=== PATIENT | female | born 1940 | race Caucasian/White ===

== ENCOUNTER → 2022-03-22 | Outpatient (CLI) | payer MEDICARE ==
[~2022-03-22] MED LIST: ACIDOPHILUS1 EAC4; ASPIRIN81 M1; ATENOLOL25 MG PO; AZO; CALCIUM 500 +1 EAC2; CENTRUM SILVER1 EACH; DIATRIZOATE MEGL/DIATRIZOA SOD 30 ML BTL PO ONE; EVISTA60 MG; FIBER CHOICE C1.5 GM; FLAX, FISH & B1 EACH; IOPAMIDOL 370 MG/ML 100 ML INFUS..BTL INJ ONE; L-LYSINE500 M2; LEVOTHYROXINE50 MCG; LOVASTATIN40 MG; MELOXICAM7.5 MG; OMEPRAZOLE40 MG; OSTEO BI-FLEX1 EACH
[2022-03-22 08:30] LABS: CREATININE, SERUM 0.92 mg/dL (0.57-1.11)
== END ==
LOC: CT 07:20
PROVIDERS: ATTEND Surgery
DX: K44.9 Diaphragmatic hernia without obstruction or gangrene (principal); K76.0 Fatty (change of) liver, not elsewhere classified; K42.9 Umbilical hernia without obstruction or gangrene
CPT/HCPCS: 36415; 74177; 82565; 84520; Q9967